=== PATIENT | female | born 1975 | race Caucasian/White ===

== ENCOUNTER 2017-09-18 07:55 | Day surgery (SDC) | payer BC, OTHER ==
[2017-09-09 09:47] VITALS: BMI 49.9
[~2017-09-18 07:55] MED LIST: DEXAMETHASONE SOD PHOSPHATE 10 MG/ML 1 ML VIAL IV ONE; DEXAMETHASONE SOD PHOSPHATE 4 MG/ML 1 ML VIAL IV ONE; FAMOTIDINE 20 MG/2 ML VIAL IV ONE; HYDROmorphone 0.5 MG/0.5 ML SYRINGE IVP PRN; LACTATED RINGERS 1,000 ML IV SCH; LIDOCAINE 1% 20 ML VIAL (10MG/ML) FOR IV START INTRADERMA PRN; MIDAZOLAM 2 MG/2 ML VIAL IV PRN; ONDANSETRON 4 MG/2 ML VIAL IVP ONE; ONDANSETRON 4 MG/2 ML VIAL IVP PRN; SCOPOLAMINE 1.5MG/72HR PATCH TRANSDERM ONE
[2017-09-18] MEDS: OXYMETAZOLINE 0.05% NASL SPRAY 1 SPRAY BOTTLE NASAL ONE ×5 (08:50→09:11)
[2017-09-18] MEDS ORDERED: PROPOFOL 10 MG/ML 20 ML VIAL IV ONE (09:49)
[2017-09-18] MEDS ORDERED: MIDAZOLAM 2 MG/2 ML VIAL ONE (09:49)
[2017-09-18] MEDS ORDERED: SUCCINYLCHOLINE CHLORIDE VIAL 200 MG/10 ML VIAL IV ONE (09:49)
[2017-09-18] MEDS ORDERED: fentaNYL (PF) 50 MCG/ML 2 ML AMP ONE (09:49)
[2017-09-18] MEDS ORDERED: LIDOCAINE 1% INJ 10MG/ML (20 ML MDV) ONE (09:49)
[2017-09-18] MEDS ORDERED: EPINEPHrine 1 MG/ML (MDV) 30 ML VIAL TOPICAL ONE (10:05)
[2017-09-18] MEDS ORDERED: FLUORESCEIN STRIPS 1 MG STRIP MISCELLANE ONE (10:05)
[2017-09-18] MEDS ORDERED: BUPIVACAIN-EPI 0.5%-1:200,000 30 ML VIAL SQ ONE (10:05)
[2017-09-18] MEDS ORDERED: BACITRACIN 500 UNIT/GM OINT 28.4 GM TUBE TOPICAL ONE (10:05)
[2017-09-18 11:14] VITALS: TEMP 96.8
--- NOTE | 2017-09-18 11:23 | P.OP ---
Date of Procedure: 09/18/17 Preoperative Diagnosis: Chronic maxillary and ethmoid sinusitis with bilateral maxillary sinus polyps intranasal polyps right middle turbinate emelina bullosa deviated nasal septum to the left large obstructive inferior turbinates. Postoperative Diagnosis: Same Procedure(s) Performed: Septoplasty Bilateral outfracture compression and submucosal resection of the inferior turbinates Bilateral functional endoscopic sinus surgery of total ethmoids and maxillary sinuses with polypectomy intranasally and from the maxillary sinuses bilaterally. Removal of bilateral intranasal polyps endoscopically. Anesthesia: GETA Surgeon: Vince Valdez Estimated Blood Loss (ml): 25 Pathology: other Condition: stable Disposition: PACU Indications for Procedure: This patient was found to have anosmia total nasal obstruction facial pain drainage. She's failed medical therapy and she was found to have a left septal deviation large obstructive inferior turbinates and block sinuses bilaterally with constant drainage and infection. Patient has failed medical therapy. Operative Findings: Patient had polyposis intranasally along with diseased tissue of the maxillary and ethmoid sinuses. Septum was deviated to the left and the inferior turbinates were large and obstructive. Description of Procedure: This patient was taken to the operative room and placed in the supine position. A general inhalation anesthetic was administered to the patient by the department of anesthesia with a functioning IV line in place. The patient was monitored throughout the entire case by the department of anesthesia. The eyes were taped shut for protection. The patient was placed in a slight reverse Trendelenburg position. The patient had previously utilize Afrin nasal spray preoperatively. The nose was evaluated and the septum lateral nasal wall and inferior turbinates were injected with lidocaine 1% with epinephrine 1 100,000 bilaterally. Approximately 10 minutes were allowed wait for full vasoconstrictive effects to take place. At this point a caudal incision was made over the caudal portion of the left septum down to the mucoperichondrium. A mucoperichondrial flap was elevated on the left side and dissection was carried with use of tunnels posteriorly. We then made a crossover incision through the cartilage to the contralateral side and for the mucoperichondrial flap development was performed to the extent of visualization on the contralateral side. After the cartilage was freed with use of several crosshatching incisions and removal of some redundant strips of septal cartilage, the septum was straightened and placed back in the midline. The septum was sutured fixated to the ovarian groove. Excellent straightening occurred and the septum was visibly straight. Incision was closed with a 40 rapid Vicryl. We utilized a running nonlocking fashion for closure of the incision. A quilting stitch was used to reapproximate the septal flaps with use of a 40 rapid Vicryl. We then entered the nose with a 0 and 30 Jamil rodolfo endoscope. Previous to this we did inject the lateral nasal wall and middle turbinate and uncinate process with lidocaine 1% with epinephrine 1 100,000. Approximately 10 minutes were allowed wait for full vasoconstrictive effects to take place. With use of 0 endoscope and a microdebrider bilateral nasal polyps were removed. The left- sided massive polyps causing near 100% nasal occlusion. Bilateral nasal polypectomy was performed with a microdebrider. With use of a microdebrider and a pediatric backbiter, we took down the uncinate process bilaterally. We then opened the maxillary sinuses bilaterally. We remove bilateral cysts and polyps from both maxillary sinuses. We utilized a microdebrider for this and entered the maxillary sinuses and removed diseased tissue. This was done bilaterally. After the maxillary sinuses were opened and the diseased tissue was removed we entered the ethmoid bulla and with use of a microdebrider and up- biting boss and Ganga, we followed the fovea frontalis through the basal lamella and into the posterior ethmoid air cells and did a total ethmoidectomy. We removed the anterior ethmoid air cells with use of a microdebrider and up- biting boss. After all the anterior ethmoid air cells were removed we did the same in the posterior ethmoid. A total ethmoidectomy was completed in that fashion with removal of all the anterior and posterior ethmoid air cells and diseased tissue. . Xerogel was inserted and minimal bleeding was encountered. We reinspected the skull base there is no signs of any orbital penetration or signs of any intracranial penetration. The sugical site was reinspected after the xerogel was placed and no bleeding was seen. To summarize, the septum was straightened and the maxillary and ethmoid sinuses were opened widely intranasal polyps were removed. We removed diseased tissue from the maxillary and ethmoid sinuses. Intranasal splints were inserted and fixated at the end of the case. We utilized Hendesron nasal splints. We did put a half a piece of the nasal pore bilaterally for hemostasis. There will be removed and the patient returns to the office. Attention was then paid to the inferior turbinates. The bilateral inferior turbinates were hypertrophic and obstructive. We entered the anterior portion of the inferior turbinates with use of a microdebrider. We remove bone and submucosal elements with use of a microdebrider bilaterally. The inferior turbinates underwent a submucosal resection with removal of submucosal tissue and bone. We obtained a much better and normal in size for breathing. The inferior turbinates were then outfractured and compressed with a Boyes nasal elevator. Excellent airway was obtained and was symmetric bilaterally. No bleeding was encountered.
[2017-09-18 12:03] VITALS: RESP 18
[2017-09-18 12:35] VITALS: BP 132/80; PULSE 81
== END 2017-09-18 13:02 | disposition home or self-care (01) ==
LOC: OR 07:55
PROVIDERS: ATTEND Otolaryngology
DX: J32.0 Chronic maxillary sinusitis (principal); J32.2 Chronic ethmoidal sinusitis; J33.8 Other polyp of sinus; J34.2 Deviated nasal septum; J34.3 Hypertrophy of nasal turbinates; K21.9 Gastro-esophageal reflux disease without esophagitis; I10 Essential (primary) hypertension; E66.9 Obesity, unspecified; Z68.42 Body mass index [BMI] 45.0-49.9, adult; I47.2 Ventricular tachycardia; Z82.49 Family history of ischemic heart disease and other diseases of the circulatory system; Z79.82 Long term (current) use of aspirin; Z79.899 Other long term (current) drug therapy; Z88.2 Allergy status to sulfonamides
CPT/HCPCS: 30520; 31267; 31255; 30140; J0171; J2250; J0330; J1100; J0690; J2405; J2001; J3010; J2704; 88300; 88305

== ENCOUNTER 2017-11-22 15:33 | Observation (INO) | payer OTHER ==
--- NOTE | 2017-11-22 16:01 | ED ---
Neck Injury/Pain HPI <Osman Padilla - Last Filed: 11/22/17 17:11> - General Mode of arrival: ambulatory Limitations: no limitations <Marah Fountain - Last Filed: 11/22/17 17:15> - General Chief Complaint: Neck Pain/Injury Stated Complaint: Neck/Jaw pain Time Seen by Provider: 11/22/17 15:40 - History of Present Illness Initial Comments: 42-year-old female patient with a past medical history significant for hypertension, atrial fibrillation, and obesity presents to the emergency department today for complaints of intermittent episodes of chest pain, left- sided neck and jaw pain, and shortness of breath. Patient states that she has had these symptoms on and off over the last 5 days. Patient states that they are never together, but happen separately at different times. Patient states she's also had increased swelling to her bilateral lower extremities. When the chest pain comes on it is substernal and lasts only a few minutes at a time. Patient denies any recent rash, fever, chills, abdominal pain, nausea, vomiting , diarrhea, constipation, back pain, numbness, tingling, dizziness, weakness, hematuria, dysuria, urinary urgency, urinary frequency, headache, visual changes , or any other complaints. (Marah Fountain) - Related Data Home Medications Medication Instructions Recorded Confirmed Cetirizine HCl [Zyrtec] 10 mg PO DAILY 11/22/17 11/22/17 Cholecalciferol [Vitamin D3] 1,000 unit PO HS 11/22/17 11/22/17 Docusate [Colace] 100 mg PO Q48H 11/22/17 11/22/17 Metoprolol Succinate (ER) [Toprol 50 mg PO BID 11/22/17 11/22/17 Xl] Previous Rx's Medication Instructions Recorded Aspirin 81 mg PO DAILY #30 chew 05/01/15 Allergies Allergy/AdvReac Type Severity Reaction Status Date / Time Sulfa (Sulfonamide Allergy Unknown Verified 11/22/17 16:32 Antibiotics) Childhood Review of Systems ROS Other: All systems not noted in ROS Statement are negative. <Osman Padilla - Last Filed: 11/22/17 17:11> ROS Other: All systems not noted in ROS Statement are negative. <Marah Fountain - Last Filed: 11/22/17 17:15> ROS Statement: Those systems with pertinent positive or pertinent negative responses have been documented in the HPI. Past Medical History Past Medical History: GERD/Reflux, Hypertension, Pulmonary Embolus (PE) Additional Past Medical History / Comment(s): PE in 2011 after c section, Gestational Diabetes., PCOS, Environmental Allergies., Hx of V-Tach., Hx of increased menorrhagia while taking xarelto and received 3 units of blood (2014). History of Any Multi-Drug Resistant Organisms: None Reported Past Surgical History: Section, Cholecystectomy, Heart Catheterization , Hysterectomy, Tonsillectomy, Uterine Ablation Additional Past Surgical History / Comment(s): c section x 2; D&C , Attempted cardiac ablation. (06/2015 [facility]), Partial Hysterectomy Past Anesthesia/Blood Transfusion Reactions: No Reported Reaction Additional Past Anesthesia/Blood Transfusion Reaction / Comment(s): Recieved 3 units of blood (no reaction 06/2015) Past Psychological History: No Psychological Hx Reported Smoking Status: Never smoker Past Alcohol Use History: None Reported Past Drug Use History: None Reported - Past Family History Father Family Medical History: Deep Vein Thrombosis (DVT), Myocardial Infarction (AL) Additional Family Medical History / Comment(s): 1st AL at 50 Mother Family Medical History: Cancer, Myocardial Infarction (AL) Additional Family Medical History / Comment(s): . <Marah Fountain M - Last Filed: 11/22/17 17:15> General Exam Limitations: no limitations General appearance: alert, in no apparent distress, other (This is a well- developed, well-nourished adult female patient in no acute distress. Vital signs upon presentation are temperature 99.4F, pulse 80, respirations 20, blood pressure 193/82, pulse ox 98% on room air.) Eye exam: Present: normal appearance, PERRL, EOMI. Absent: scleral icterus, conjunctival injection, periorbital swelling ENT exam: Present: normal exam, normal oropharynx, mucous membranes moist Respiratory exam: Present: normal lung sounds bilaterally. Absent: respiratory distress, wheezes, rales, rhonchi, stridor Cardiovascular Exam: Present: regular rate, normal rhythm, normal heart sounds. Absent: systolic murmur, diastolic murmur, rubs, gallop, clicks GI/Abdominal exam: Present: soft, normal bowel sounds. Absent: distended, tenderness, guarding, rebound, rigid Neurological exam: Present: alert, oriented X3, CN II-XII intact Psychiatric exam: Present: normal affect, normal mood Skin exam: Present: warm, dry, intact, normal color. Absent: rash <Marah Fountain - Last Filed: 11/22/17 17:15> Course <Osman Padilla - Last Filed: 11/22/17 17:11> <Marah Fountain - Last Filed: 11/22/17 17:15> Vital Signs 11/22/17 15:35 Temperature 99.4 F Pulse Rate 80 Respiratory 20 Rate Blood Pressure 193/82 O2 Sat by Pulse 98 Oximetry - Reevaluation(s) Reevaluation #1: 11/22/17 17:11 RN ADVANCED supervision: I did personally do a [id number] evaluation the patient did discuss Pfizer the patient will be admitted to Dr. Stone was notified. I do agree with the assessment and plan (Osman Padilla) Medical Decision Making - Lab Data Result diagrams: 11/22/17 16:05 11/22/17 16:05 <Osman Padilla - Last Filed: 11/22/17 17:11> - Lab Data Result diagrams: 11/22/17 16:05 11/22/17 16:05 - EKG Data -: EKG Interpreted by Me - Radiology Data Radiology results: report reviewed, image reviewed <Marah Fountain - Last Filed: 11/22/17 17:15> - Medical Decision Making This is a 42-year-old female patient who presented to the emergency department today for evaluation of intermittent episodes of chest pain, shortness of breath , neck pain and jaw pain. Physical examination is unremarkable. Labs reviewed and initial cardiac labs were negative. BNP is normal. I did discuss findings and results with the patient as well as my attending physician. Is followed this time we should keep patient for observation and repeat troponins. Did discuss the case with Dr. felixed agrees to admission. We'll start patient on heparin and restart her home meds. (Marah Fountain) - Lab Data Lab Results 11/22/17 11/22/17 11/22/17 Range/Units 16:05 16:05 16:05 WBC 8.5 (3.8-10.6) k/uL RBC 4.89 (3.80-5.40) m/uL Hgb 13.6 (11.4-16.0) gm/dL Hct 38.8 (34.0-46.0) % MCV 79.5 L (80.0-100.0) fL MCH 27.8 (25.0-35.0) pg MCHC 35.0 (31.0-37.0) g/dL RDW 13.8 (11.5-15.5) % Plt Count 271 (150-450) k/uL Neutrophils % 68 % Lymphocytes % 22 % Monocytes % 5 % Eosinophils % 2 % Basophils % 1 % Neutrophils # 5.8 (1.3-7.7) k/uL Lymphocytes # 1.9 (1.0-4.8) k/uL Monocytes # 0.5 (0-1.0) k/uL Eosinophils # 0.2 (0-0.7) k/uL Basophils # 0.0 (0-0.2) k/uL PT (9.0-12.0) sec INR (<1.2) APTT (22.0-30.0) sec Sodium 141 (137-145) mmol/L Potassium 4.1 (3.5-5.1) mmol/L Chloride 105 (98-107) mmol/L Carbon Dioxide 25 (22-30) mmol/L Anion Gap 11 mmol/L BUN 14 (7-17) mg/dL Creatinine 0.70 (0.52-1.04) mg/dL Est GFR (CKD-EPI)AfAm >90 (>60 ml/min/1.73 sqM) Est GFR (CKD-EPI)NonAf >90 (>60 ml/min/1.73 sqM) Glucose 113 H (74-99) mg/dL Calcium 9.4 (8.4-10.2) mg/dL Magnesium 1.8 (1.6-2.3) mg/dL Total Bilirubin 0.4 (0.2-1.3) mg/dL AST 49 H (14-36) U/L ALT 68 H (9-52) U/L Alkaline Phosphatase 102 (38-126) U/L Total Creatine Kinase 251 H (30-135) U/L CK-MB (CK-2) 3.5 H* (0.0-2.4) ng/mL CK-MB (CK-2) Rel Index 1.4 Troponin I <0.012 (0.000-0.034) ng/mL NT-Pro-B Natriuret Pep pg/mL Total Protein 6.5 (6.3-8.2) g/dL Albumin 3.7 (3.5-5.0) g/dL 11/22/17 11/22/17 Range/Units 16:05 16:05 WBC (3.8-10.6) k/uL RBC (3.80-5.40) m/uL Hgb (11.4-16.0) gm/dL Hct (34.0-46.0) % MCV (80.0-100.0) fL MCH (25.0-35.0) pg MCHC (31.0-37.0) g/dL RDW (11.5-15.5) % Plt Count (150-450) k/uL Neutrophils % % Lymphocytes % % Monocytes % % Eosinophils % % Basophils % % Neutrophils # (1.3-7.7) k/uL Lymphocytes # (1.0-4.8) k/uL Monocytes # (0-1.0) k/uL Eosinophils # (0-0.7) k/uL Basophils # (0-0.2) k/uL PT 9.8 (9.0-12.0) sec INR 1.0 (<1.2) APTT 22.9 (22.0-30.0) sec Sodium (137-145) mmol/L Potassium (3.5-5.1) mmol/L Chloride (98-107) mmol/L Carbon Dioxide (22-30) mmol/L Anion Gap mmol/L BUN (7-17) mg/dL Creatinine (0.52-1.04) mg/dL Est GFR (CKD-EPI)AfAm (>60 ml/min/1.73 sqM) Est GFR (CKD-EPI)NonAf (>60 ml/min/1.73 sqM) Glucose (74-99) mg/dL Calcium (8.4-10.2) mg/dL Magnesium (1.6-2.3) mg/dL Total Bilirubin (0.2-1.3) mg/dL AST (14-36) U/L ALT (9-52) U/L Alkaline Phosphatase (38-126) U/L Total Creatine Kinase (30-135) U/L CK-MB (CK-2) (0.0-2.4) ng/mL CK-MB (CK-2) Rel Index Troponin I (0.000-0.034) ng/mL NT-Pro-B Natriuret Pep 14 pg/mL Total Protein (6.3-8.2) g/dL Albumin (3.5-5.0) g/dL - Radiology Data Two-view x-ray of the chest shows no focal airspace opacity, pleural effusion, or pneumothorax. There are overlying cardiac leads. The cardiac silhouette size is stable. The osseous structures are intact. Impression by Dr. Lo shows no acute cardiopulmonary process. (Marah Fountain) Disposition <Osman Padilla - Last Filed: 11/22/17 17:11> Decision to Admit Reason: Admit from [facility] Decision Date: 11/22/17 Decision Time: 17:13 <Marah Fountain - Last Filed: 11/22/17 17:15> Clinical Impression: Atypical chest pain Disposition: ADMITTED IP TO THIS [facility] Condition: Serious Referrals: Wilbert Spears MD [Primary Care Provider] - 1-2 days
[2017-11-22 16:18] LABS: Basophils % (A) 1 %; Eosinophils # (A) 0.2 k/uL (0-0.7); Eosinophils % (A) 2 %; HCT 38.8 % (34.0-46.0); HGB 13.6 gm/dL (11.4-16.0); Lymphocytes # (A) 1.9 k/uL (1.0-4.8); Lymphocytes % (A) 22 %; MCH 27.8 pg (25.0-35.0); MCV 79.5 fL (80.0-100.0); Mean Platelet Volume 6.4; Monocytes # (A) 0.5 k/uL (0-1.0); Monocytes % (A) 5 %; Neutrophils # (A) 5.8 k/uL (1.3-7.7); Neutrophils % (A) 68 %; Platelet Count 271 k/uL (150-450); RBC 4.89 m/uL (3.80-5.40); RDW 13.8 % (11.5-15.5); WBC 8.5 k/uL (3.8-10.6)
--- NOTE | 2017-11-22 16:22 | XR ---
EXAMINATION TYPE: XR chest 2V DATE OF EXAM: 11/22/2017 COMPARISON: Prior chest x-ray 04/27/2015 HISTORY: Chest pain TECHNIQUE: Frontal and lateral views of the chest are obtained. FINDINGS: There is no focal air space opacity, pleural effusion, or pneumothorax seen. There are ove rlying cardiac leads. The cardiac silhouette size is stable. The osseous structures are intact. IMPRESSION: No acute cardiopulmonary process.
[2017-11-22 16:26] LABS: ALT 68 U/L (9-52); AST 49 U/L (14-36); Albumin 3.7 g/dL (3.5-5.0); Alkaline Phosphatase 102 U/L (38-126); Anion Gap 11 mmol/L; Blood Urea Nitrogen 14 mg/dL (7-17); Calcium 9.4 mg/dL (8.4-10.2); Carbon Dioxide 25 mmol/L (22-30); Chloride 105 mmol/L (98-107); Glucose 113 mg/dL (74-99); Magnesium 1.8 mg/dL (1.6-2.3); Potassium 4.1 mmol/L (3.5-5.1); Sodium 141 mmol/L (137-145); Total Bilirubin 0.4 mg/dL (0.2-1.3); Total Protein 6.5 g/dL (6.3-8.2)
[2017-11-22 16:29] LABS: Partial Thromboplastin Time 22.9 sec (22.0-30.0); Prothrombin Time 9.8 sec (9.0-12.0)
[2017-11-22 16:41] LABS: Creatine Kinase 251 U/L (30-135)
[2017-11-22 16:54] LABS: Creatine Kinase MB 3.5 ng/mL (0.0-2.4); Troponin I <0.012 ng/mL (0.000-0.034)
[2017-11-22] MEDS ORDERED: HEPARIN SODIUM,PORCINE 5,000 UNIT/ML 1 ML VIAL IV ONE (17:10)
[2017-11-22] MEDS ORDERED: NITROGLYCERIN SL TABS 0.4 MG TAB SUBLINGUAL PRN (17:10)
[2017-11-22] MEDS ORDERED: HEPARIN SOD,PORK IN 0.45% NACL 25,000 UNIT in 0.45% NACL 1 500ML.BAG IV SCH (17:15)
[2017-11-22] MEDS ORDERED: SODIUM CHLORIDE 0.9% 500 ML IV SCH (18:15)
[2017-11-22 21:00] VITALS: BMI 52.7
[2017-11-22] MEDS ORDERED: CHOLECALCIFEROL 1,000 UNIT TAB PO SCH (21:00)
[2017-11-22 22:30] LABS: Creatine Kinase 191 U/L (30-135)
[2017-11-22 22:44] LABS: Troponin I <0.012 ng/mL (0.000-0.034)
[2017-11-22 22:46] LABS: Creatine Kinase MB 2.5 ng/mL (0.0-2.4)
[2017-11-22] MEDS: METOPROLOL SUCCINATE (ER) 50 MG TAB.ER.24H PO SCH (23:50)
[2017-11-23 04:38] LABS: Cholesterol 177 mg/dL (<200); HDL Cholesterol 30 mg/dL (40-60); LDL Cholesterol,Calculated 76 mg/dL (0-99); Triglycerides 356 mg/dL (<150)
[2017-11-23 04:49] LABS: Creatine Kinase 158 U/L (30-135)
[2017-11-23 05:01] LABS: Creatine Kinase MB 1.8 ng/mL (0.0-2.4); Troponin I <0.012 ng/mL (0.000-0.034)
[2017-11-23] MEDS ORDERED: ASPIRIN 325 MG TAB PO SCH (09:00)
[2017-11-23] MEDS ORDERED: LORATADINE 10 MG TAB PO SCH (09:00)
[2017-11-23] MEDS ORDERED: DOCUSATE 100 MG CAP PO SCH (09:00)
[2017-11-23] MEDS: METOPROLOL SUCCINATE (ER) 50 MG TAB.ER.24H PO SCH (09:30)
[2017-11-23 12:28] VITALS: BP 128/71; PULSE 66; RESP 18; TEMP 98.2
--- NOTE | 2017-11-23 13:13 | CONS ---
CONSULTATION CHIEF COMPLAINT: Chest pain. Cathy is a 42-year-old lady with history of hypertension who presents to hospital complaining of intermittent episodes of neck pain and intermittent episodes of the ear ache, neck pain, and jaw discomfort. It actually started with a discomfort in her ear and then has radiated down. By the time of my evaluation, she is pain free. Hemodynamically stable and in no apparent distress. EKG does not reveal ischemic changes and cardiac enzymes have been negative. The patient had a cardiac catheterization in 2014 that did not reveal any obstructive CAD. The patient also had a RVOT ventricular tachycardia for which I think she underwent an ablation. PAST MEDICAL HISTORY: Significant for hypertension. MEDICATIONS: She is currently on Toprol-XL. ALLERGIES: ALLERGY TO SULFA. FAMILY HISTORY: Negative for premature coronary artery disease. SOCIAL HISTORY: Negative for smoking, ETOH abuse or drug abuse. REVIEW OF SYSTEMS: HEENT significant for ear ache and neck pain. Cardiac negative. Respiratory negative. GI: Negative. GENITOURINARY: Negative. ALLERGY/IMMUNOLOGY: Negative. Skin: Negative. Musculoskeletal significant for arthritis. Psychosocial negative. Endocrine negative. Derm: Negative. Constitutional: Negative. Oncological: Negative. Rest of the systems review is not relevant. PHYSICAL EXAM: Comfortable at rest. Vital signs are stable. There is no jugular venous distention. Carotid upstroke is normal. There is no bruit. Chest exam reveals good air entry bilaterally. Heart exam reveals first and second heart sounds. No gallop. No murmur. No rub. Abdomen is soft, nontender. Exam of extremities did not reveal any edema. Peripheral pulses are felt. LABS: Show that 3 sets of cardiac enzymes are negative. Creatinine is normal at 0.7. Hemoglobin is 13.6. ASSESSMENT: 1. Chest pain, atypical. 2. History of hypertension. PLAN: Patient is doing well. I reviewed her old records including the cardiac catheterization. She is stable to be discharged home and outpatient followup arranged through our office with an outpatient echo and stress test. MMODL / IJN: [id number] /
--- NOTE | 2017-11-23 18:55 | HP ---
HISTORY AND PHYSICAL DATE OF ADMISSION: November 22, 2017. PRESENTING COMPLAINT: Left neck pain. HISTORY OF PRESENTING COMPLAINT: This is a pleasant 42-year-old patient of Dr. Spears. Chronic stable medical conditions include polycystic ovarian syndrome, hypertension, GERD. The patient presented with pain in the left neck area, feels like a fullness, present off and on. Also in the neck and part of her jaw, not related to eating. The patient is rather active otherwise. There was no precordial pain. No shortness of breath. No dizziness. No lightheadedness. No prior cardiac history. Hence, admitted from the ER to rule out a cardiac cause. REVIEW OF SYSTEMS: CONSTITUTIONAL: None. HEENT none except as above. RESPIRATORY: None. Cardiovascular none. GASTROINTESTINAL: Heartburn. Musculoskeletal none. Dermatological and hematologic, lymphatic none. Psychiatry none. Neurological none. PAST MEDICAL HISTORY: Polycystic ovarian syndrome, hypertension, GERD, pulmonary embolism with section in 2014, gestational diabetes, history of ventricular tachycardia. PAST SURGICAL HISTORY: , cholecystectomy, cardiac catheterization, hysterectomy, tonsillectomy, uterine ablation, partial hysterectomy. SOCIAL HISTORY: Does not smoke or drink alcohol. . 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 FAMILY HISTORY: Both parents had heart disease and grandparents. HOME MEDICATIONS: 1. Toprol-XL 50 mg b.i.d. 2. Colace 100 mg p.o. daily. 3. Vitamin D3 1000 units p.o. q.h.s. 4. Zyrtec 10 mg p.o. daily. 5. Aspirin 81 mg p.o. daily. ALLERGIES: SULFA. PHYSICAL EXAMINATION: Temperature 98.2, pulse 66, respiratory 18, blood pressure 120/71, pulse ox 94% on room air. General appearance: Well built, BMI 52.7, sitting up, comfortable. Eyes: Pupils equal. Conjunctivae normal. HEENT: External appearance of nose and ears normal. Oral cavity normal. Neck JVD not raised. Mass not palpable. Respiratory effort lungs are clear. Cardiovascular 1st and 2nd sounds normal. No edema. ABDOMEN: Soft, nontender. Liver and spleen not palpable. Lymphatics: No lymph nodes palpable in neck or axillae. PSYCHIATRY: Alert and oriented times three. Mood and affect normal. Neurological: Pupils equal. Cranial nerves grossly intact. Power and sensation grossly intact. Additionally there is no tenderness in the left neck area. INVESTIGATIONS: White count 8.5, hemoglobin 13.6, potassium 4.1. Troponin times three negative. LDL 76. EKG normal sinus rhythm. ASSESSMENT: 1. Left neck pain does not sound to be cardiac except patient does have a positive cardiac history. Hence patient admitted to rule out a cardiac cause. 2. Polycystic ovarian syndrome. 3. Essential hypertension. 4. Morbid obesity BMI 52.7. 5. Gastroesophageal reflux disease. PLAN: Cardiology was consulted. Home medications are resumed. Still cardiac enzymes are negative. Patient was put on IV heparin through the ER. The patient should see a dietitian for weight loss measures. Care was discussed with the patient and at the bedside. Copy to Dr. Spears. IAN / HANNA: [id number] /
--- NOTE | 2017-11-24 05:37 | DS ---
DISCHARGE SUMMARY DATE OF ADMISSION: 11/22/17. DATE OF DISCHARGE: November 23, 2017. FINAL DIAGNOSES: 1. Left neck pain could be musculoskeletal. 2. Polycystic ovarian syndrome. 3. Essential hypertension. 4. Morbid obesity BMI 52.7. 5. Gastroesophageal reflux disease. CONSULTATION: Dr. Symone Morales. HOSPITAL COURSE: This patient presents with some left neck pain rather noncardiac sounding. The patient's troponin x3 were negative. LDL was 76. Seen by Dr. Symone Morales from Cardiology, who okayed the patient to be discharged. The patient did have a prior cardiac catheterization apparently was unremarkable. She will follow up for a followup outpatient stress test. Care was discussed with the patient and her . EXAM: Lungs are clear. Cardiovascular 1st and second sounds normal. DISCHARGE MEDICATIONS: 1. Aspirin 81 mg a day. 2. Zyrtec 10 mg a day. 3. Vitamin D3 1000 units p.o. at bedtime. 4. Colace 100 mg p.o. daily. 5. Toprol-XL 50 mg p.o. b.i.d. Follow up with Dr. Spears in 3 days. Follow up with Dr. Shanique Kirkpatrick in [address] Spears. MMODL / IJN: [id number] /
== END 2017-11-23 17:00 | disposition home or self-care (01) ==
LOC: EC 15:33 → 3SUR 17:12
PROVIDERS: ADMIT Hospitalist; ATTEND Hospitalist
DX: M54.2 Cervicalgia (principal); R07.89 Other chest pain; R68.84 Jaw pain; R06.02 Shortness of breath; I10 Essential (primary) hypertension; E28.2 Polycystic ovarian syndrome; Z68.43 Body mass index [BMI] 50.0-59.9, adult; E66.01 Morbid (severe) obesity due to excess calories; K21.9 Gastro-esophageal reflux disease without esophagitis; Z79.82 Long term (current) use of aspirin; Z79.899 Other long term (current) drug therapy; Z88.2 Allergy status to sulfonamides; Z86.79 Personal history of other diseases of the circulatory system; Z86.711 Personal history of pulmonary embolism; Z86.32 Personal history of gestational diabetes; Z82.49 Family history of ischemic heart disease and other diseases of the circulatory system; Z83.2 Family history of diseases of the blood and blood-forming organs and certain disorders involving the immune mechanism; Z80.9 Family history of malignant neoplasm, unspecified
CPT/HCPCS: 99284 ×2; 96365 ×2; 96366 ×5; 96376 ×2; 36415; 93005; 83880; 80061; 80053; 82550 ×2; 82553 ×2; 83735; 84484 ×2; 85025; 85610; 85730 ×2; 71046; G0378 ×2; J1644 ×2